=== PATIENT | female | born 1960 | race Caucasian/White ===

== ENCOUNTER 2025-02-15 12:32 | Outpatient (OUT) | payer OTHER, SELFPAY ==
--- NOTE | 2025-02-15 12:40 | MR_ITS ---
The [address] [address] Patient Name: MATTEO JALLOH MRN: [id number] date: 1960 Sex: F Assigned Patient Location: MRI Current Patient Location: Accession/Order Number: [id number] Exam Date: 02/15/2025 12:55 Report Date: 02/16/2025 13:29 At the request of: YOVANY DURAN DO Procedure: MR lumbar spine wo con MR lumbar spine wo con 02/15/2025 1:36 PM SIGNS AND SYMPTOMS: ^Weakness To Lower Extremity PROTOCOL: Multiplanar multisequence MR images of the lumbar spine without IV contrast COMPARISON: 04/09/2019 FINDINGS: There is 4 mm of anterolisthesis of L4 upon L5 secondary to facet hypertrophy. The bones are otherwise in anatomic alignment. There is preservation of vertebral body heights. There is disc desiccation and mild disc height loss at L4-5 and L5-S1. Marrow edema is noted in the facets at L5 and L4 predominantly on the left. The conus terminates at the T12-L1 intervertebral disc level. No epidural or paraspinous fluid collection is appreciated. At T12-L1: There is a normal disc, central canal, and neural foramen. At L1-L2: There is a normal disc, central canal, and neural foramen. At L2-L3: There is a normal disc, central canal, and neural foramen. At L3-L4: There is a normal disc, central canal, and neural foramen. At L4-L5: There is a broad-based disc bulge. There is facet hypertrophy with ligamentum flavum thickening. There is moderate spinal canal stenosis with mild bilateral neural foraminal narrowing. There is 4 mm of anterolisthesis of L4 upon L5 secondary to facet hypertrophy. This is worse when compared to the prior exam. At L5-S1: There is a broad-based disc bulge with facet hypertrophy. There is no significant spinal canal or neural foraminal stenosis. MR/MR lumbar spine wo con IMPRESSION: At L4-L5: There is a broad-based disc bulge. There is facet hypertrophy with ligamentum flavum thickening. There is moderate spinal canal stenosis with mild bilateral neural foraminal narrowing. There is 4 mm of anterolisthesis of L4 upon L5 secondary to facet hypertrophy. This is worse when compared to the prior exam. At L5-S1: There is a broad-based disc bulge with facet hypertrophy. There is no significant spinal canal or neural foraminal stenosis. Impression dictated by: Quincy Miguel M.D. 02/16/2025 1:29 PM Dictation Location: [place] [address] Electronically authenticated by: [id number] Date: 02/16/2025 13:29
== END 2025-02-15 12:33 | disposition home or self-care (01) ==
LOC: MRI 12:34
PROVIDERS: PCP Family Medicine; Visit Provider Psychiatry & Neurology Neurology
DX: R29.898 Other symptoms and signs involving the musculoskeletal system (principal); M51.369 Other intervertebral disc degeneration, lumbar region without mention of lumbar back pain or lower extremity pain
CPT/HCPCS: 72148